=== PATIENT | male | born 1970 ===

== ENCOUNTER 2023-12-26 09:33 | Outpatient (CLI) | payer MEDICARE, MEDICAID, SELFPAY | END 2023-12-26 09:34 | disposition home or self-care (01) | LOC: ANHAUDIO 09:34 | PROVIDERS: PCP Otolaryngology; Visit Provider Otolaryngology | DX: H90.11 Conductive hearing loss, unilateral, right ear, with unrestricted hearing on the contralateral side (principal) | CPT/HCPCS: 92557; 92567 ==